=== PATIENT | female | born 1990 | race Caucasian/White ===

== ENCOUNTER 2018-06-24 19:32 | Emergency (ER) | payer MEDICARE, MEDICAID ==
[2018-06-24 19:49] VITALS: TEMP 102.6
[2018-06-24 20:08] LABS: BASOPHILS % (AUTO) 1 % (0-3); EOSINOPHILS % (AUTO) 2 % (0-9); HEMATOCRIT 42 % (35-47); HEMOGLOBIN 13.8 gm/dl (12.0-15.5); LYMPHOCYTES % (AUTO) 11.6 % (10-50); MEAN CORPUSCULAR HEMOGLOBIN 28.7 pg (27.0-32.0); MEAN CORPUSCULAR HGB CONC 32.8 gm/dl (32.0-36.0); MEAN CORPUSCULAR VOLUME 87 fL (81-99); MONOCYTES % (AUTO) 20.4 % (0-12); NEUTROPHILS % (AUTO) 65.1 % (37-80)
[2018-06-24 22:27] VITALS: BP 128/86; PULSE 121; RESP 20; O2SAT 97
== END 2018-06-24 21:15 | disposition home or self-care (01) | DRG 153 ==
LOC: ED 19:32
DX: J06.9 Acute upper respiratory infection, unspecified (principal)
CPT/HCPCS: 36415; 71045; 85025; 87430; 99283

== ENCOUNTER 2018-06-26 22:37 | Inpatient (IN) | payer MEDICARE, MEDICAID ==
[2018-06-26] MEDS ORDERED: SODIUM CHLORIDE 0.9% 1000ML 1,000 ML IV ONE (22:59)
[2018-06-26] MEDS ORDERED: ALBUTEROL/IPRATROPIUM 1 VIAL SOL INH ONE (22:59)
[2018-06-26] MEDS ORDERED: ACETAMINOPHEN 500 MG 500 MG TAB PO ONE (23:00)
[2018-06-26] MEDS ORDERED: IBUPROFEN 400 MG TAB PO ONE (23:06)
[2018-06-26] MEDS ORDERED: ALBUTEROL/IPRATROPIUM 1 VIAL SOL ONE (23:08)
[2018-06-26] MEDS ORDERED: PIPERACILLIN/TAZOBACT 3.375 GM PDS IV ONE (23:08)
[2018-06-26] MEDS ORDERED: IBUPROFEN 400 MG TAB ONE (23:15)
[2018-06-26] MEDS: PIPERACILLIN/TAZOBACT 3.375 GM 3 GM in SODIUM CHLORIDE 0.9% 100 ML 100 ML IV SCH (23:20)
[2018-06-26 23:36] LABS: BILIRUBIN,TOTAL 0.1 mg/dl (0.2-1.0); CALCIUM 8.5 mg/dl (8.5-10.1); CARBON DIOXIDE 27.3 mEq/L (21-32); CREATININE 0.73 mg/dl (0.60-1.00); HEMATOCRIT 41 % (35-47); HEMOGLOBIN 13.4 gm/dl (12.0-15.5); MEAN CORPUSCULAR HEMOGLOBIN 27.9 pg (27.0-32.0); MEAN CORPUSCULAR HGB CONC 32.5 gm/dl (32.0-36.0); MEAN CORPUSCULAR VOLUME 86 fL (81-99); POTASSIUM 3.8 mMol/L (3.5-5.1); TOTAL PROTEIN 7.4 gm/dl (6.4-8.2); TROP I 0.026 ng/ml (0.000-0.056)
[2018-06-26 23:38] LABS: LACTIC ACID 1.7 mMol/L (0.0-2.0)
[2018-06-27 00:08] LABS: BAND NEUTROPHILS % (MANUAL) 23 %; BASOPHILS % (MANUAL) 0 % (0-3); EOSINOPHILS % (MANUAL) 0 % (0-9); LYMPHOCYTES % (MANUAL) 25 % (10-50); METAMYELOCYTES%(MANUAL) 1; MONOCYTES % (MANUAL) 8 % (0-12); NEUTROPHILS % (MANUAL) 43 % (37-80); NORMAL RBCS PRESENT; PLATELET MORPHOLOGY COMMENT DECREASED
[2018-06-27] MEDS ORDERED: SODIUM CHLORIDE 0.9% 1000ML 1,000 ML IV NR (00:15)
[2018-06-27] MEDS ORDERED: ALBUTEROL NEB SOL 2.5MG/3ML 1 VIAL SOL NEB PRN (00:19)
[2018-06-27] MEDS ORDERED: ASCORBIC ACID 500 MG TAB PO PRN (00:27)
[2018-06-27] MEDS ORDERED: RANITIDINE HCL 150 MG TAB PO PRN (00:27)
[2018-06-27] MEDS ORDERED: CALCIUM CARBONATE 500 MG TAB PO PRN (00:27)
[2018-06-27] MEDS ORDERED: TRIAMCINOLONE 0.1% CREAM CRE TOP PRN (00:27)
[2018-06-27] MEDS ORDERED: PIPERACILLIN/TAZOBACT 3.375 GM 3.375 GM in SODIUM CHLORIDE 0.9% 100 ML 100 ML IV SCH (00:30)
[2018-06-27] MEDS ORDERED: VANCOMYCIN HYDROCHLORIDE 500 MG PDS IV ONE ×2 (01:18→01:19)
[2018-06-27] MEDS ORDERED: SODIUM CHLORIDE 0.9% 100 ML 100 ML IV ONE ×2 (01:20→05:16)
[2018-06-27] MEDS: SODIUM CHLORIDE 0.9% FLUSH 10 ML SOL IV SCH ×3 (01:23→17:12)
[2018-06-27] MEDS: ALBUTEROL/IPRATROPIUM 1 VIAL SOL INH SCH ×3 (01:25→13:15)
[2018-06-27] MEDS: VANCOMYCIN HCL 500 MG PDS 1,000 MG in SODIUM CHLORIDE 0.9% 100 ML 100 ML IV SCH ×2 (01:27→12:15)
[2018-06-27] MEDS: ACETAMINOPHEN 325 MG PO PRN ×2 (02:06→12:12)
[2018-06-27] MEDS: DM/GUAIFENESIN SYRUP 10 ML SYRP PO PRN ×3 (02:08→16:04)
[2018-06-27] MEDS: Non-Formulary Medication MISC (Peg-400/Propylene Glycol 1 DROP) RIGHTEYE SCH ×6 (02:30→16:06)
[2018-06-27] MEDS: MINERAL OIL LEFTEYE SCH ×6 (02:30→16:06)
[2018-06-27] MEDS: [UNRECOGNIZED DRUG - OTHER] LEFTEYE SCH ×6 (02:30→16:06)
[2018-06-27] MEDS ORDERED: PIPERACILLIN/TAZOBACT 3.375 GM PDS IV ONE (05:16)
[2018-06-27] MEDS: PIPERACILLIN/TAZOBACT 3.375 GM 3 GM in SODIUM CHLORIDE 0.9% 100 ML 100 ML IV SCH ×2 (05:25→12:15)
[2018-06-27 07:52] LABS: CALCIUM 7.6 mg/dl (8.5-10.1); CARBON DIOXIDE 28.1 mEq/L (21-32); CREATININE 0.53 mg/dl (0.60-1.00); POTASSIUM 3.5 mMol/L (3.5-5.1)
[2018-06-27] MEDS ORDERED: VANCOMYCIN HCL 500 MG PDS 1,000 MG in SODIUM CHLORIDE 0.9% 250 ML 250 ML IV SCH (09:00)
[2018-06-27] MEDS ORDERED: PANTOPRAZOLE SODIUM 40 MG ECT PO SCH (09:00)
[2018-06-27] MEDS ORDERED: GABAPENTIN 300 MG CAP PO SCH ×2 (09:00→21:00)
[2018-06-27] MEDS ORDERED: POLYETHYLENE GLYCOL 17 GM/1 TBS PDS PO SCH (09:00)
[2018-06-27] MEDS ORDERED: DULOXETINE HCL 30 MG CAPSULE.DR PO SCH (09:00)
[2018-06-27] MEDS ORDERED: OXYBUTYNIN CHLORIDE 5 MG TAB PO SCH (09:00)
[2018-06-27] MEDS ORDERED: ASPIRIN 325 MG TAB PO SCH (09:00)
[2018-06-27] MEDS ORDERED: MULTIVITAMIN2 1 EA TAB PO SCH (09:00)
[2018-06-27] MEDS ORDERED: VALPROIC ACID 1000 MG PO SCH (09:00)
[2018-06-27] MEDS ORDERED: Non-Formulary Medication MISC (Saliva Substitute Combo No.9 [Biotene Dry Mouth Mouthwash PO SCH (09:00)
[2018-06-27] MEDS: CLONAZEPAM 0.5 MG TAB PO SCH ×2 (09:48→16:06)
[2018-06-27] MEDS: IBUPROFEN 600 MG TAB PO PRN ×2 (09:50→15:59)
[2018-06-27] MEDS ORDERED: LEVOFLOXACIN 500 MG TAB PO SCH (11:45)
[2018-06-27 13:56] VITALS: PULSE 90; RESP 14
[2018-06-27 16:03] VITALS: BP 128/68; TEMP 98.6; O2SAT 97
[2018-06-27] MEDS ORDERED: MIRTAZAPINE 15 MG TAB PO SCH (21:00)
== END 2018-06-27 17:05 | disposition other institution (70) | DRG 195 ==
LOC: ED 22:37 → ACUTE CARE 06-27 00:16
PROVIDERS: ADMIT Internal Medicine; ATTEND Family Medicine
DX: R00.0 Tachycardia, unspecified (principal); J18.9 Pneumonia, unspecified organism
CPT/HCPCS: 36415; 71045; 80048; 80053; 84484; 85007; 85027; 87040; 93005; 93012; 94762; 96365; 99070; 99236; 99285; J2543; J3370; A9270-GY

== ENCOUNTER 2018-08-06 03:18 | Emergency (ER) | payer MEDICARE, MEDICAID ==
[2018-08-06 03:59] VITALS: RESP 17; TEMP 99.6
[2018-08-06] MEDS ORDERED: ACETAMINOPHEN 500 MG 500 MG TAB PO ONE (04:10)
[2018-08-06] MEDS ORDERED: LEVOFLOXACIN 500 MG TAB PO ONE (04:11)
[2018-08-06] MEDS ORDERED: ACETAMINOPHEN 500 MG 500 MG TAB ONE (04:14)
[2018-08-06] MEDS ORDERED: LEVOFLOXACIN 500 MG TAB ONE (04:14)
[2018-08-06 09:07] VITALS: BP 96/59; PULSE 88; O2SAT 96
== END 2018-08-06 08:55 | disposition home or self-care (01) | DRG 195 ==
LOC: ED 03:18
DX: J16.8 Pneumonia due to other specified infectious organisms (principal)
CPT/HCPCS: 71045; 93005; 99283; 99284; A9270-GY

== ENCOUNTER 2018-08-07 23:37 | Emergency (ER) | payer MEDICARE, MEDICAID ==
[2018-08-07 23:44] VITALS: RESP 18
[2018-08-08] MEDS ORDERED: CEFTRIAXONE 1 GM PDS 1 GM in SODIUM CHLORIDE 0.9% 50 ML 50 ML IV ONE (00:06)
[2018-08-08] MEDS ORDERED: SODIUM CHLORIDE 0.9% 1000ML 1,000 ML IV ONE ×2 (00:06→06:55)
[2018-08-08] MEDS ORDERED: ACETAMINOPHEN 325 MG PO ONE (00:07)
[2018-08-08] MEDS ORDERED: CEFTRIAXONE 1 GM PDS ONE (00:08)
[2018-08-08] MEDS ORDERED: ACETAMINOPHEN 325 MG ONE (00:09)
[2018-08-08 00:22] LABS: BASOPHILS % (AUTO) 1 % (0-3); EOSINOPHILS % (AUTO) 0 % (0-9); HEMATOCRIT 38 % (35-47); LYMPHOCYTES % (AUTO) 16.8 % (10-50); MEAN CORPUSCULAR HEMOGLOBIN 28.9 pg (27.0-32.0); MEAN CORPUSCULAR HGB CONC 33.9 gm/dl (32.0-36.0); MEAN CORPUSCULAR VOLUME 85 fL (81-99); MONOCYTES % (AUTO) 11.5 % (0-12); NEUTROPHILS % (AUTO) 70.6 % (37-80)
[2018-08-08 00:33] LABS: CALCIUM 8.6 mg/dl (8.5-10.1); CARBON DIOXIDE 27.8 mEq/L (21-32); CREATININE 0.63 mg/dl (0.60-1.00); POTASSIUM 3.5 mMol/L (3.5-5.1)
[2018-08-08 00:59] VITALS: BP 122/68; PULSE 117; O2SAT 96
[2018-08-08 03:02] VITALS: TEMP 98.3
== END 2018-08-08 07:32 | disposition home or self-care (01) | DRG 195 ==
LOC: ED 23:37
DX: J16.8 Pneumonia due to other specified infectious organisms (principal)
CPT/HCPCS: 80048; 85025; 96365; 96366; 99283; 99285; J0696

== ENCOUNTER 2018-11-08 15:49 | Emergency (ER) | payer MEDICARE, MEDICAID ==
[2018-11-08] MEDS ORDERED: NITROGLYCERIN 0.4 MG TAB SL PRN (16:10)
[2018-11-08] MEDS ORDERED: MORPHINE SULFATE 10 MG/ML SOL IV PRN (16:10)
[2018-11-08] MEDS: SODIUM CHLORIDE 0.9% FLUSH 10 ML SOL IV PRN (16:14)
[2018-11-08 16:22] LABS: BASOPHILS % (AUTO) 1 % (0-3); EOSINOPHILS % (AUTO) 0 % (0-9); HEMATOCRIT 42 % (35-47); HEMOGLOBIN 13.7 gm/dl (12.0-15.5); LYMPHOCYTES % (AUTO) 25.3 % (10-50); MEAN CORPUSCULAR HEMOGLOBIN 29.7 pg (27.0-32.0); MEAN CORPUSCULAR HGB CONC 32.5 gm/dl (32.0-36.0); MEAN CORPUSCULAR VOLUME 91 fL (81-99); MONOCYTES % (AUTO) 11.9 % (0-12); NEUTROPHILS % (AUTO) 61.5 % (37-80)
[2018-11-08] MEDS ORDERED: ALUMINUM/MAGNESIUM 30 ML SUS ONE (16:22)
[2018-11-08] MEDS ORDERED: ALUMINUM/MAGNESIUM 30 ML SUS PO ONE (16:25)
[2018-11-08] MEDS ORDERED: LIDOCAINE HCL 2% (VISCOUS) 15 ML SOL MT ONE (16:25)
[2018-11-08 16:26] LABS: CARBON DIOXIDE 33.6 mEq/L (21-32); CREATININE 0.53 mg/dl (0.60-1.00)
[2018-11-08 17:43] VITALS: RESP 20
[2018-11-08] MEDS ORDERED: RANITIDINE HCL IV ONE (18:00)
[2018-11-08] MEDS ORDERED: SODIUM CHLORIDE IV ONE (18:00)
[2018-11-08 18:31] VITALS: BP 117/86; PULSE 86; O2SAT 97
[2018-11-08] MEDS ORDERED: RANITIDINE HYDROCHLORIDE 25 MG/ML SOL ONE (19:14)
== END 2018-11-08 19:10 | disposition home or self-care (01) | DRG 313 ==
LOC: ED 15:49
DX: R07.9 Chest pain, unspecified (principal); K21.0 Gastro-esophageal reflux disease with esophagitis; I50.9 Heart failure, unspecified
CPT/HCPCS: 36415; 71045; 80048; 84484; 85025; 93005; 96374; 99283; 99285; J2780; A9270-GY